=== PATIENT | male | born 1945 | race Caucasian/White ===

== ENCOUNTER 2017-04-03 08:11 | Outpatient (CLI) | payer MEDICARE, OTHER ==
[2016-05-20 23:53] VITALS: BP 142/65
== END 2017-04-03 08:30 ==
LOC: LAB 08:11
PROVIDERS: ATTEND Family Medicine
DX: G40.909 Epilepsy, unspecified, not intractable, without status epilepticus (principal)
CPT/HCPCS: 36415; 80188

== ENCOUNTER 2018-08-19 16:58 | Observation (INO) | payer MEDICARE, OTHER ==
--- NOTE | 2018-08-19 17:28 | History and Physical Report ---
History of Present Illnes - History of Present Illness Reason for Visit: Fever, dyspnea History of Present Illness: This is a 73 year old male who presented to the clinic this afternoon with complaint of fever and dyspnea over the past two days. His fever in the office was 102.7, and he had significant difficulty ambulating to the table for examination. He says that he feels very weak and dizzy, and has not had much appetite. He has a significant history of CAD, but denies any chest pain currently or in the past few days. His is feeling well. - Past Medical History Cardiac: CAD, Hyperlipidemia CONTINUOUS IMPROVEMENT CONSULTANT: Seizure - Past Surgical History Past Surgical History: Appendectomy, Other (AAA stent, removal of infected AAA graft, lumbar fusion), Other (PCI/Stent) - Past Social History Smoke: # pack years (60), Quit Alcohol: None Drugs: None Lives: With Family () Domestic Violence: Negative - Health Maintenance Health Maintenance: Cholesterol Influenza Vaccine: Current for this Influenza Season Pneumonia Vaccine: Yes Resuscitation Status: Resusciation Status Resuscitation Status Full Code - Unable to Obtain History Unable to Obtain: No Review of Systems - Review of Systems Constitutional: Fever, Chills, Sweats, Weakness, Malaise Eyes: negative: pain ENT: negative: Ear Pain, Ear Discharge Respiratory: Cough, Shortness of Breath Cardiovascular: negative: Chest Pain, Palpitations Gastrointestinal: Nausea. negative: Vomiting Genitourinary: negative: Dysuria, Frequency Musculoskeletal: negative: Neck Pain, Shoulder Pain Skin: negative: Rash Neurological: Weakness, Incoordination. negative: Change in Speech, Seizures - Medications/Allergies Allergies/Adverse Reactions: Allergies Allergy/AdvReac Type Severity Reaction Status Date / Time No Known Drug Allergies Allergy Verified 05/20/16 22:59 Current Inpatient Medications: Current Inpatient Medications Hydroxychloroquine Sulfate (Plaquenil) 200 mg PO BID ANGEL Sodium Chloride (Normal Saline) 1,000 mls @ 100 mls/hr IV Q10H ANGEL Phenobarbital (Luminal) 30 mg PO DAILY ANGEL Exam - Exam General: Alert, Oriented to Person, Discheveled (and acutely ill) HEENT: Atraumatic, PERRLA, EOMI Neck: No: Stridor Lungs: Wheezes, Rhonchi (with cough) Cardiovascular: Regular rate, Tachycardia Murmur: No: Systolic Murmur Abdomen: Normal bowel sounds, Soft, No tenderness Genitourinary: No: Other Male Genitourinary: No: Other Female Genitourinary: No: Other Integumentary: Flushed Extremities: No clubbing, No cyanosis Neurological: Normal speech, Generalized Weakness Psych/Mental Status: No: Mental status NL (some confusion) Assessment/Plan - Assessment/Plan (1) Cough Status: Acute Current Visit: Yes Assessment: Check CXR (2) Fever Status: Acute Current Visit: Yes Assessment: CBC ,CXR (3) Ataxia Status: Acute Current Visit: Yes (4) Mental status change resolved Status: Acute Current Visit: Yes Assessment: Likely due to medical illness (5) CAD (coronary artery disease) Status: Acute Current Visit: Yes Qualifiers: Coronary Disease-Associated Artery/Lesion type: [place] artery Lum[place] vs. transplanted heart: [place] heart Associated angina: without angina Qualified Code(s): I25.10 - Atherosclerotic heart disease of [place] coronary artery without angina pectoris Assessment: Check EKG and troponin VTE Assessment - RISK FACTOR SCORE VTE RISK FACTOR SCORES: AGE OVER 60 YEARS, ACUTE INFECTION OTHER THEN SEPSIS (on Lovenox 30 mg IM daily)
[2018-08-19] MEDS ORDERED: 0.9 % SODIUM CHLORIDE 1,000 ML IV SCH (17:30)
[2018-08-19] MEDS ORDERED: ACETAMINOPHEN 325 MG TABLET PO PRN (18:25)
[2018-08-19] MEDS ORDERED: 0.9 % SODIUM CHLORIDE 250 ML IV ONE (18:41)
[2018-08-19] MEDS ORDERED: cefTRIAXone SODIUM 1 GM VIAL ONE (18:42)
[2018-08-19] MEDS ORDERED: HYDROXYCHLOROQUINE SULFATE 200 MG TABLET PO ONE (18:42)
[2018-08-19] MEDS ORDERED: METOPROLOL TARTRATE 50 MG TABLET ONE (18:42)
[2018-08-19] MEDS ORDERED: IPRATROPIUM/ALBUTEROL SULFATE 3 ML AMPUL.NEB NEB ONE (18:43)
[2018-08-19] MEDS ORDERED: SIMVASTATIN 20 MG TABLET ONE (18:43)
[2018-08-19] MEDS ORDERED: 0.9 % SODIUM CHLORIDE 50 ML IV ONE (18:43)
[2018-08-19] MEDS ORDERED: AZITHROMYCIN 500 MG VIAL IV ONE (18:47)
[2018-08-19] MEDS ORDERED: AZITHROMYCIN 250 MG in 0.9 % SODIUM CHLORIDE 250 ML IV SCH (19:00)
[2018-08-19] MEDS ORDERED: cefTRIAXone SODIUM 1 GM in 0.9 % SODIUM CHLORIDE 50 ML IV SCH (19:00)
[2018-08-19 19:11] VITALS: BMI 28.8
[2018-08-19 20:09] LABS: BASOPHILS % 0.4 (0.0-1.5); EOSINOPHILS % 1.4 % (0.0-6.8); MEAN CORPUSCULAR HEMOGLOBIN 32.5 pg (28.0-34.0); MONOCYTES % 10.9 % (0.0-11.0); NEUTROPHILS # 8.1 # k/uL (1.4-7.7)
[2018-08-19 20:17] LABS: eGFR (Non-African) > 60
[2018-08-19] MEDS ORDERED: ASPIRIN 81 MG CHEW TAB PO ONE (20:58)
[2018-08-19] MEDS ORDERED: ASPIRIN EC 81 MG TABLET.DR ONE (20:59)
[2018-08-19] MEDS ORDERED: METOPROLOL TARTRATE 50 MG TABLET PO SCH (21:00)
[2018-08-19] MEDS ORDERED: IPRATROPIUM/ALBUTEROL SULFATE 3 ML AMPUL.NEB NEB SCH (21:00)
[2018-08-19] MEDS ORDERED: SIMVASTATIN 20 MG TABLET PO SCH (21:00)
[2018-08-19] MEDS ORDERED: HYDROXYCHLOROQUINE SULFATE 200 MG TABLET PO SCH (21:00)
[2018-08-19 21:25] VITALS: BP 130/71
--- NOTE | 2018-08-19 22:23 | Diagnostic Imaging Report ---
MONICA CHRISTENSEN [facility] [address] [facility] [address] [place], [place]. [address] Report Submission Date: Aug 19, 2018 6:06:23 PM GLOBAL CHIEF CREATIVE OFFICER Patient Study Name: SHAGGY IGNACIO Date: Aug 19, 2018 5:41:49 PM GLOBAL CHIEF CREATIVE OFFICER Modality Type: DX Gender: M Description: CHEST : 41 Institution: [facility] Physician: MONICA CHRISTENSEN Chest, PA and lateral HISTORY Fever, weakness. FINDINGS No prior examination is available for comparison. There is no pleural effusion or pneumothorax. There is a 13 cm mass or mass-like infiltrate in the left upper lobe. Malignancy is not excluded and computed tomography is recommended for further evaluation. Right lung is relatively clear. Heart size and pulmonary vascularity are normal. IMPRESSION Large left upper lobe mass or mass-like infiltrate. Further evaluation is recommended. Electronically signed on Aug 19, 2018 6:06:23 PM GLOBAL CHIEF CREATIVE OFFICER by: Amrik DESHPANDE
[2018-08-20] MEDS ORDERED: LISINOPRIL 20 MG TABLET PO SCH (09:00)
[2018-08-20] MEDS ORDERED: PHENobarbital 30 MG TABLET PO SCH (09:00)
[2018-08-20] MEDS ORDERED: amLODIPine BESYLATE 5 MG TABLET PO SCH (09:00)
== END 2018-08-19 21:50 | disposition short-term general hospital (02) ==
LOC: SOUTH 16:58
PROVIDERS: ADMIT Family Medicine; ATTEND Family Medicine
DX: R05 Cough (principal); R50.9 Fever, unspecified; R27.0 Ataxia, unspecified; R41.82 Altered mental status, unspecified; I25.10 Atherosclerotic heart disease of native coronary artery without angina pectoris
CPT/HCPCS: 71046; 80053; 84484; 85025; 87040; 93005; 96365; G0378; G0379; J0456; J0696; J7030; J7050; 99235; S1016

== ENCOUNTER 2018-09-21 00:18 | Emergency (ER) | payer MEDICARE, OTHER ==
--- NOTE | 2018-09-21 00:28 | ED Physician Documentation ---
Chest Pain - HISTORIAN Historian: patient - HPI Stated Complaint: chest pressure no improvement since illness last month Chief Complaint: Chest Pain Onset: other (4 weeks ) Timing: still present Duration: constant Last known Well Date: 08/21/18 Last Known Well Time: 10:00 Last known Well Code/Unknown Code: Unknown Context: other (all the time ) Severity: mild Quality: pressure. denies: like prior MD Chest Pain Radiation: no radiation Chest Pain Signs/Symptoms: denies: nausea, vomiting, diaphoresis, cool extremities, dizziness, dyspnea, tachypnea, hypotension, palpitations, weakness Worsened By: nothing Relieved By: other (walking ) - ROS CONST: none MS/LYMPH: none NEURO/PSYCH: denies: headache, fainting - PAST HX MD risk factors: A-Fib Neuro deficit: none GI disease: none Lung disease: other (pneumonia last month ) Surgeries/Procedures: cardiac stent Immunizations: UTD Allergies/Adverse Reactions: Allergies Allergy/AdvReac Type Severity Reaction Status Date / Time No Known Drug Allergies Allergy Verified 09/21/18 00:36 Home Medications: Ambulatory Orders Medication Instructions Recorded Simvastatin 20 mg PO DAILY u2 05/11/13 Cilostazol 50 mg PO BID 05/20/16 Metoprolol Tartrate 50 mg PO BID 09/21/18 Ramipril [Altace] 10 mg PO DAILY 09/21/18 Rivaroxaban [Xarelto] 20 mg PO DAILY 09/21/18 - SOCIAL HX Smoking History: non-smoker Alcohol Use: none Drug Use: none - FAMILY HX Family HX: none - VITAL SIGNS Vital Signs: Vital Signs Temp Pulse Resp BP Pulse Ox 130/71 08/19/18 21:50 - REVIEWED ASSESSMENTS Nursing Assessment Reviewed: Yes Vitals Reviewed: Yes Progress - Progress Progress: 0150: resting quietly in bed DG 0314: results discussed. He does not wish to be admitted. He states he will call Dr Shankar in the am. ED Results Lab/Radiology - Radiology Radiology Impressions: PA and lateral chest Clinical history: Chest pain. Recent pneumonia. Findings: Examination of the chest in PA and lateral views with comparison to examination of 08/19/2018 demonstrates decrease in left-sided infiltrate with residual. There are bilateral pleural effusions blunting the costophrenic angles. Cardiovascular and mediastinal silhouettes are stable. Monitor leads superimpose the chest. Impression: 1. Decrease in left-sided infiltrate. 2. New right effusion. 3. Recommend follow-up to resolution. Electronically signed on Sep 21, 2018 1:20:49 AM CLEAN UP PERSON by: Mike Goodman CT pulmonary angiography with contrast Clinical history: Chest pain. Elevated D-dimer. Contrast administered: 95 mL of Omnipaque. Technique: CT pulmonary angiography is performed with intravenous infusion of contrast. Sliding sagittal and coronal MIP reconstructions were performed by the technologist. Findings: There are underlying changes of emphysema in the lungs. There are bilateral pleural effusions greater on the right with passive atelectasis in the lung bases. There is irregular infiltrate in the left upper lobe. Follow-up to resolution is recommended. The central airways are patent. Vascular calcification is present in the thoracic aorta with extension into the origins of the great vessels and coronary arteries including calcification in the left main coronary artery. There are small mediastinal nodes but no significant adenopathy. Vascular structures enhance normally. There is no filling defect in the pulmonary arteries or vascular cutoff to suggest a diagnosis of pulmonary embolism. Impression: 1. No pulmonary embolus. 2. Bilateral pleural effusions greater on the right. 3. Irregular left upper lobe infiltrate. Recommend follow-up to resolution. 4. Vascular calcification. Electronically signed on Sep 21, 2018 3:08:08 AM CLEAN UP PERSON by: Mike Goodman Chest Pain Physical Exam - EXAM General Appearance: no acute distress, alert EENT: eye inspection normal, no signs of dehydration Neck: nml inspection Respiratory: no resp. distress, chest non-tender, nml breath sounds CVS: reg. rate & rhythm, no murmur Abdomen: soft, no distension Skin: warm/dry, normal color Extremities: non-tender, normal range of motion, no evidence of injury, no edema Neuro: oriented X3 Discharge Clincal Impression: Pleural effusion Pneumonia Qualifiers: Pneumonia type: due to unspecified organism Laterality: left Lung location: lower lobe of lung Qualified Code(s): J18.1 - Lobar pneumonia, unspecified organism Referrals: Matthew Shankar MD [Primary Care Provider] - 2 Days Comments: 1. Doxycycline 100 mg take 1 by mouth twice daily x [address] Shankar in AM 3. Return to ER for any concerns Condition: Stable Disposition: 07 AGAINST MEDICAL ADVICE Decision to Admit: NO Date of Decison to Admit: 09/21/18 Decision Time: 03:21
[2018-09-21] MEDS ORDERED: ASPIRIN 81 MG CHEW TAB PO ONE (00:31)
[2018-09-21] MEDS ORDERED: DOXYCYCLINE 100 MG CAPSULE PO ONE (03:16)
[2018-09-21 03:39] VITALS: BP 151/87
--- NOTE | 2018-09-21 06:37 | Diagnostic Imaging Report ---
MARIO GROVES [facility] [address] [facility] [address] [address] Report Submission Date: Sep 21, 2018 3:08:08 AM LICENSING REPRESENTATIVE Patient Study Name: SHAGGY IGNACIO Date: Sep 21, 2018 2:28:29 AM LICENSING REPRESENTATIVE Modality Type: CT\SR Gender: M Description: CT CHEST W/ CONTRAST : 43 Institution: [facility] Physician: MARIO GROVES CT pulmonary angiography with contrast Clinical history: Chest pain. Elevated D-dimer. Contrast administered: 95 mL of Omnipaque. Technique: CT pulmonary angiography is performed with intravenous infusion of contrast. Sliding sagittal and coronal MIP reconstructions were performed by the technologist. Findings: There are underlying changes of emphysema in the lungs. There are bilateral pleural effusions greater on the right with passive atelectasis in the lung bases. There is irregular infiltrate in the left upper lobe. Follow-up to resolution is recommended. The central airways are patent. Vascular calcification is present in the thoracic aorta with extension into the origins of the great vessels and coronary arteries including calcification in the left main coronary artery. There are small mediastinal nodes but no significant adenopathy. Vascular structures enhance normally. There is no filling defect in the pulmonary arteries or vascular cutoff to suggest a diagnosis of pulmonary embolism. Impression: 1. No pulmonary embolus. 2. Bilateral pleural effusions greater on the right. 3. Irregular left upper lobe infiltrate. Recommend follow-up to resolution. 4. Vascular calcification. Electronically signed on Sep 21, 2018 3:08:08 AM LICENSING REPRESENTATIVE by: Mike DESHPANDE
--- NOTE | 2018-09-21 06:40 | Diagnostic Imaging Report ---
MARIO GROVES [facility] [address] [facility] [address] [place], [place]. [address] Report Submission Date: Sep 21, 2018 1:20:49 AM PATTERN PAINTER Patient Study Name: SHAGGY IGNACIO Date: Sep 21, 2018 12:51:42 AM PATTERN PAINTER Modality Type: DX Gender: M Description: CHEST : 41 Institution: [facility] Physician: MARIO GROVES PA and lateral chest Clinical history: Chest pain. Recent pneumonia. Findings: Examination of the chest in PA and lateral views with comparison to examination of 08/19/2018 demonstrates decrease in left-sided infiltrate with residual. There are bilateral pleural effusions blunting the costophrenic angles. Cardiovascular and mediastinal silhouettes are stable. Monitor leads superimpose the chest. Impression: 1. Decrease in left-sided infiltrate. 2. New right effusion. 3. Recommend follow-up to resolution. Electronically signed on Sep 21, 2018 1:20:49 AM PATTERN PAINTER by: Mike DESHPANDE
[2018-09-21 08:01] LABS: BASOPHILS % 0.4 (0.0-1.5); EOSINOPHILS % 2.2 % (0.0-6.8); MEAN CORPUSCULAR HEMOGLOBIN 32.8 pg (28.0-34.0); MONOCYTES % 9.1 % (0.0-11.0)
[2018-09-21 08:02] LABS: eGFR (Non-African) > 60
== END 2018-09-21 03:35 | disposition left against medical advice (07) ==
LOC: ED 00:18
DX: J90 Pleural effusion, not elsewhere classified (principal); J18.1 Lobar pneumonia, unspecified organism
CPT/HCPCS: 36415; 71046; 71260; 80053; 84484; 85025; 85379; 99284; 99285; Q9967; S1016

== ENCOUNTER 2018-09-21 20:06 | Emergency (ER) | payer MEDICARE, OTHER ==
[2018-09-21] MEDS ORDERED: IPRATROPIUM/ALBUTEROL SULFATE 3 ML AMPUL.NEB NEB STA (20:31)
--- NOTE | 2018-09-21 21:39 | ED Physician Documentation ---
Dyspnea - HISTORIAN Historian: patient - HPI Stated Complaint: Shortness of air Chief Complaint: Dyspnea Onset: days ago Duration: continues in ED Further Comments: yes (73 year old male patient presents with complaints of dyspnea. Patient was seen in the ER last night and diagnosed with pneumonia. Patient was discharged with doxycycline. Patient was offered observation admiss ion, refused to stay.) - ROS CONST: recent illness (Pneumonia) EYES/ENT: none GI/: none NEURO/PSYCH: denies: headache MS/SKIN/LYMPH: none - PAST HX Lung Disease: asthma, COPD, pneumonia (last month) Cardiac Disease: A-Fib PE Risk Factors: hypertension Allergies/Adverse Reactions: Allergies Allergy/AdvReac Type Severity Reaction Status Date / Time No Known Drug Allergies Allergy Verified 09/21/18 21:18 Home Medications: Ambulatory Orders Medication Instructions Recorded Simvastatin 20 mg PO DAILY u2 05/11/13 Cilostazol 50 mg PO BID 05/20/16 Metoprolol Tartrate 50 mg PO BID 09/21/18 Ramipril [Altace] 10 mg PO DAILY 09/21/18 Rivaroxaban [Xarelto] 20 mg PO DAILY 09/21/18 - SOCIAL HX Smoking History: non-smoker - FAMILY HX Family History: denies: none - VITAL SIGNS Vital Signs: Vital Signs Temp Pulse Resp BP Pulse Ox 98.6 F 76 18 135/83 94 09/21/18 20:15 09/21/18 20:15 09/21/18 20:15 09/21/18 20:15 09/21/18 20:15 - REVIEWED ASSESSMENTS Nursing Assessment Reviewed: Yes Vitals Reviewed: Yes Progress - Progress Progress: Records reviewed from ER visit yesterday including lab and CT chest. Duoneb given in ER. Sat improved to 98% Patient states he has an appointment with the pulmonogist in the morning. ED Results Lab/Radiology - Radiology Radiology Impressions: CT pulmonary angiography with contrast Clinical history: Chest pain. Elevated D-dimer. Contrast administered: 95 mL of Omnipaque. Technique: CT pulmonary angiography is performed with intravenous infusion of contrast. Sliding sagittal and coronal MIP reconstructions were performed by the technologist. Findings: There are underlying changes of emphysema in the lungs. There are bilateral pleural effusions greater on the right with passive atelectasis in the lung bases. There is irregular infiltrate in the left upper lobe. Follow-up to resolution is recommended. The central airways are patent. Vascular calcification is present in the thoracic aorta with extension into the origins of the great vessels and coronary arteries including calcification in the left main coronary artery. There are small mediastinal nodes but no significant adenopathy. Vascular structures enhance normally. There is no filling defect in the pulmonary arteries or vascular cutoff to suggest a diagnosis of pulmonary embolism. Impression: 1. No pulmonary embolus. 2. Bilateral pleural effusions greater on the right. 3. Irregular left upper lobe infiltrate. Recommend follow-up to resolution. 4. Vascular calcification. Electronically signed on Sep 21, 2018 3:08:08 AM TABLE SAW OPERATOR by: Mike Goodman - Orders Orders: ED Orders Category Date Time Status Ipratropium/Albuterol Sulfate [Duoneb] Med 09/21/18 20:31 Discontinued 3 ml NEB STAT STA Dyspnea Physical Exam - EXAM General Appearance: no acute distress, alert EENT: eye inspection normal, ENT inspection normal, pharynx normal, no signs of dehydration, MARCIA, no nystagmus, TM's nml Respiratory: no resp. distress, no pain on inspiration, speaks full sentences, decreased air movement (bilateral bases; ), rales (right upper lobe bilateral), other (RA Sat 94 % on arrival. ) Skin: color nml, no rash, warm, nml palp., dry Extremities: non-tender, normal range of motion, no evidence of injury, no edema, J, RESIDENT INTERN Neuro/Psych: oriented x3, CN's nml as tested, motor nml, sensation nml, mood/affect nml Discharge Clincal Impression: Pleural effusion Pneumonia Qualifiers: Pneumonia type: due to unspecified organism Laterality: left Lung location: upper lobe of lung Qualified Code(s): J18.1 - Lobar pneumonia, unspecified organism Referrals: Matthew Shankar MD [Primary Care Provider] - 2 Days Additional Instructions: Keep your appointment with the lodging manager in the morning. Continue your antibiotics. Return to the ER if you have increased SOB. Condition: Stable Disposition: 01 HOME, SELF-CARE Decision to Admit: NO Decision Time: 21:38
[2018-09-21 22:00] VITALS: BP 136/78
== END 2018-09-21 21:55 | disposition home or self-care (01) ==
LOC: ED 20:06
DX: J90 Pleural effusion, not elsewhere classified (principal); J18.1 Lobar pneumonia, unspecified organism
CPT/HCPCS: 94640; 99283; 99284

== ENCOUNTER 2018-09-23 21:59 | Emergency (ER) | payer MEDICARE, OTHER ==
[2018-09-23] MEDS ORDERED: IPRATROPIUM/ALBUTEROL SULFATE 3 ML AMPUL.NEB NEB ONE (23:32)
--- NOTE | 2018-09-24 01:01 | ED Physician Documentation ---
General Adult - HISTORIAN Historian: patient, spouse - HPI Stated Complaint: shortness of breath Chief Complaint: Dyspnea Additional Information: intro self as ELEMENTARY READING SPECIALIST. pt presents to the ED via POV with c/o dyspnea. VSS. O2 94% HR 86. a/o x 3, skin pwd. 2L O2 placed and DuoNeb admin. Dyspnea resolved. Pt previously dx with pneumonia and on doxycycline. recent dx of COPD pt here previously x 2 and refused admission/transfer. pt was seen by pulmonology today and placed on proair inh. pt states he is scheduled to have thoracentesis with pulmonology this week although pt is on xarleto and this has to be d/c prior to procedure. and pt has appt with cardiology, dr clarke this friday to address xarleto. - ROS CONST: recent illness, weakness EYES/ENT: none CVS/RESP: none, shortness of breath, cough. denies: chest pain GI/: none. denies: abdominal pain, problems urinating, vomiting, nausea, diarrhea MS/SKIN/LYMPH: none. denies: leg swelling NEURO/PSYCH: denies: headache, fainting, dizziness, tingling, numbness, difficulty walking, difficulty with speech, anxiety, depression - PAST HX Past History: A-Fib Allergies/Adverse Reactions: Allergies Allergy/AdvReac Type Severity Reaction Status Date / Time No Known Drug Allergies Allergy Verified 09/21/18 21:18 Home Medications: Ambulatory Orders Medication Instructions Recorded Simvastatin 20 mg PO DAILY u2 05/11/13 Cilostazol 50 mg PO BID 05/20/16 Metoprolol Tartrate 50 mg PO BID 09/21/18 Ramipril [Altace] 10 mg PO DAILY 09/21/18 Rivaroxaban [Xarelto] 20 mg PO DAILY 09/21/18 Ipratropium/Albuterol Sulfate 3 ml NEB Q6 PRN #30 ampul.neb 09/25/18 [Duoneb] - SOCIAL HX Smoking History: non-smoker Alcohol Use: none Drug Use: none - FAMILY HX Family History: No - VITAL SIGNS Vital Signs: Vital Signs Temp Pulse Resp BP Pulse Ox 97.6 F 74 18 131/66 98 09/23/18 22:00 09/24/18 00:30 09/23/18 22:00 09/23/18 22:00 09/24/18 00:30 - REVIEWED ASSESSMENTS Nursing Assessment Reviewed: Yes Vitals Reviewed: Yes Progress - Progress Progress: Dyspnea subsided after duoneb x 1 Advised pt his CXR was worsening and should be admitted/transferred. Pt refused. explained risks including . advised to return if worse. understanding verbalized ED Results Lab/Radiology - Radiology Radiology Impressions: Patient Study Name: SHAGGY IGNACIO Date: Sep 23, 2018 11:47:18 PM ADMINISTRATIVE SUPPORT ASSOC Modality Type: DX Gender: M Description: CHEST : 41 Institution: [facility] Physician: MELISSA BIRMINGHAM Ap portable upright radiographs of the chest Clinical history: Pneumonia Comparison: 2 days earlier Technique: anterior /posterior portable upright Findings: There is cardiomegaly. The aorta is tortuous and calcified. Increased infiltrates are present in both lungs with increasing right pleural effusion and right base atelectasis. The lung ludwig remain hyperinflated . Impression: Increasing bilateral infiltrates and increasing right pleural effusion Electronically signed on Sep 24, 2018 12:26:35 AM ADMINISTRATIVE SUPPORT ASSOC by: Dmitri Griffin PA and lateral chest Clinical history: Chest pain. Recent pneumonia. Findings: Examination of the chest in PA and lateral views with comparison to examination of 08/19/2018 demonstrates decrease in left-sided infiltrate with residual. There are bilateral pleural effusions blunting the costophrenic angles. Cardiovascular and mediastinal silhouettes are stable. Monitor leads superimpose the chest. Impression: 1. Decrease in left-sided infiltrate. 2. New right effusion. 3. Recommend follow-up to resolution. Electronically signed on Sep 21, 2018 1:20:49 AM ADMINISTRATIVE SUPPORT ASSOC by: Mike Goodman CT pulmonary angiography with contrast Clinical history: Chest pain. Elevated D-dimer. Contrast administered: 95 mL of Omnipaque. Technique: CT pulmonary angiography is performed with intravenous infusion of contrast. Sliding sagittal and coronal MIP reconstructions were performed by the technologist. Findings: There are underlying changes of emphysema in the lungs. There are bilateral pleural effusions greater on the right with passive atelectasis in the lung bases. There is irregular infiltrate in the left upper lobe. Follow-up to resolution is recommended. The central airways are patent. Vascular calcification is present in the thoracic aorta with extension into the origins of the great vessels and coronary arteries including calcification in the left main coronary artery. There are small mediastinal nodes but no significant adeno yari. Vascular structures enhance normally. There is no filling defect in the pulmonary arteries or vascular cutoff to suggest a diagnosis of pulmonary embolism. Impression: 1. No pulmonary embolus. 2. Bilateral pleural effusions greater on the right. 3. Irregular left upper lobe infiltrate. Recommend follow-up to resolution. 4. Vascular calcification. Electronically signed on Sep 21, 2018 3:08:08 AM ADMINISTRATIVE SUPPORT ASSOC by: Mike Goodman - Orders Orders: ED Orders Category Date Time Status Continuous EKG monitoring Q30M Care 09/23/18 23:28 Active Continuous Pulse Oximetry Q30M Care 09/23/18 23:[address] IV Lock 1T Care 09/23/18 23:28 Active CHEST 1VIEW [RAD] Stat Exams 09/23/18 Ordered CBC/PLATELET/DIFF Stat Lab 09/23/18 23:44 Received CMP Stat Lab 09/23/18 23:44 Received D DIMER Stat Lab 09/23/18 23:44 Received TROPONIN T (Zeus) Stat Lab 09/23/18 23:44 Received Ipratropium/Albuterol Sulfate [Duoneb] Med 09/23/18 23:32 Discontinued 3 ml NEB NOW ONE Oxygen Daily Oxygen 09/23/18 23:30 Ordered EKG WITH COMPARISON Stat Ther 09/23/18 23:28 Ordered General Adult Physical Exam - PHYSICAL EXAM GENERAL APPEARANCE: mild distress EENT: eye inspection normal, ENT inspection normal, pharynx normal, no signs of dehydration, MARCIA, no nystagmus, TM's nml NECK: normal inspection, thyroid normal RESPIRATORY: no resp distress, chest non-tender, rales (right-mild), other (diminished Bilateral ). No: wheezes CVS: reg rate & rhythm, heart sounds normal, equal pulses, no murmur, no gallop, PMI nml, no JVD ABDOMEN: soft, no organomegaly, normal bowel sounds, no abdominal bruit, no distension BACK: normal inspection, no CVA tenderness SKIN: normal color, warm/dry, NR, INT, PAL, DR EXTREMITIES: non-tender, normal range of motion, no evidence of injury, no edema, J, ELEMENTARY READING SPECIALIST NEURO: oriented X3, motor nml, sensation nml, mood/affect nml Discharge Clincal Impression: Pleural effusion Pneumonia Qualifiers: Pneumonia type: due to unspecified organism Laterality: unspecified laterality Lung location: unspecified part of lung Qualified Code(s): J18.9 - Pneumonia, unspecified organism Prescriptions: Ipratropium/Albuterol Sulfate [Duoneb] 3 ml NEB Q6 PRN #30 ampul.neb PRN Reason: Bronchospasm Referrals: Matthew Shankar MD [Primary Care Provider] - 2 Days Condition: Stable Disposition: AGAINST MEDICAL ADVICE Decision to Admit: NO Date of Decison to Admit: 09/24/18 Decision Time: 01:00
[2018-09-24 01:05] VITALS: BP 119/78
--- NOTE | 2018-09-24 06:12 | Diagnostic Imaging Report ---
MELISSA BIRMINGHAM [facility] [address] [facility] [address] [address] Report Submission Date: Sep 24, 2018 12:26:35 AM LEARNING AND DEVELOPMENT DIRECTOR Patient Study Name: SHAGGY IGNACIO Date: Sep 23, 2018 11:47:18 PM LEARNING AND DEVELOPMENT DIRECTOR Modality Type: DX Gender: M Description: CHEST : 41 Institution: [facility] Physician: MELISSA BIRMINGHAM Ap portable upright radiographs of the chest Clinical history: Pneumonia Comparison: 2 days earlier Technique: anterior /posterior portable upright Findings: There is cardiomegaly. The aorta is tortuous and calcified. Increased infiltrates are present in both lungs with increasing right pleural effusion and right base atelectasis. The lung ludwig remain hyperinflated . Impression: Increasing bilateral infiltrates and increasing right pleural effusion Electronically signed on Sep 24, 2018 12:26:35 AM LEARNING AND DEVELOPMENT DIRECTOR by: Dmitri DESHPANDE
[2018-09-24 07:11] LABS: BASOPHILS % 0.3 (0.0-1.5); EOSINOPHILS % 2.4 % (0.0-6.8); MEAN CORPUSCULAR HEMOGLOBIN 32.9 pg (28.0-34.0); MONOCYTES % 6.9 % (0.0-11.0); NEUTROPHILS # 4.6 # k/uL (1.4-7.7); eGFR (Non-African) > 60
== END 2018-09-24 01:05 | disposition left against medical advice (07) ==
LOC: ED 21:59
DX: J90 Pleural effusion, not elsewhere classified (principal); J18.9 Pneumonia, unspecified organism
CPT/HCPCS: 36415; 71045; 80053; 84484; 85025; 85379; 94640; 99283; 99285; S1016

== ENCOUNTER 2018-09-27 00:31 | Emergency (ER) | payer MEDICARE, OTHER ==
[2018-09-27] MEDS ORDERED: FUROSEMIDE 40 MG/4 ML VIAL IVP ONE (00:46)
[2018-09-27] MEDS ORDERED: clonazePAM 0.5 MG TABLET PO ONE (01:05)
--- NOTE | 2018-09-27 01:34 | ED Physician Documentation ---
Dyspnea - HISTORIAN Historian: patient, spouse - HPI Stated Complaint: "When I lay down I feel like my chest gets tight than I become SOA" Chief Complaint: Dyspnea Additional Information: Patient with past medical history of dilated cardiomyopathy (lvef 38%), atrial fibrillation and emphysema presents to ED with ongoing orthopnea. Patient was hospitalized in [place] recently for pneumonia, he is still on antibiotics. He has had multiple ER visits for shortness of breath. Chest xray from 09/23/18 compared to 09/21/18 reveals worsening right pleural effusion and heart failure. Patient saw cardiology yesterday and was started on Aldactone and Lasix. Pulmomology would like to do a thoracentesis however cardiology is against the plan due to Xarelto. Patient has taken one dose of Aldactone and Lasix. He denies fever, chills, cough, chest pain or night sweats. Onset: days ago (30) Duration: continues in ED Initiating Event: upper respiratory illness Severity: moderate Exacerbated By: laying flat Associated Symptoms: denies: chills, fever, chest pain, bloody cough, productive cough - ROS CONST: recent illness EYES/ENT: none GI/: none NEURO/PSYCH: denies: headache MS/SKIN/LYMPH: none - PAST HX Lung Disease: COPD Cardiac Disease: A-Fib, other (dilated cardiomyopathy) PE Risk Factors: leg swelling Surgeries/Procedures: none Other History: none Allergies/Adverse Reactions: Allergies Allergy/AdvReac Type Severity Reaction Status Date / Time No Known Drug Allergies Allergy Verified 09/21/18 21:18 Home Medications: Ambulatory Orders Medication Instructions Recorded Simvastatin 20 mg PO DAILY u2 05/11/13 Cilostazol 50 mg PO BID 05/20/16 Metoprolol Tartrate 50 mg PO BID 09/21/18 Ramipril [Altace] 10 mg PO DAILY 09/21/18 Rivaroxaban [Xarelto] 20 mg PO DAILY 09/21/18 Ipratropium/Albuterol Sulfate 3 ml NEB Q6 PRN #30 ampul.neb 09/25/18 [Duoneb] Furosemide 20 mg PO DAILY 09/27/18 Spironolactone 25 tab PO DAILY 09/27/18 - SOCIAL HX Smoking History: non-smoker Alcohol Use: none Drug Use: none - FAMILY HX Family History: none - VITAL SIGNS Vital Signs: Vital Signs Temp Pulse Resp BP Pulse Ox 97.8 F 67 12 138/78 99 09/27/18 00:40 09/27/18 00:40 09/27/18 00:40 09/27/18 00:40 09/27/18 00:40 - REVIEWED ASSESSMENTS Nursing Assessment Reviewed: Yes Vitals Reviewed: Yes Progress - Progress Progress: 0120 Discussed cardiomyopathy, heart failure and pleural effusion. Recommend continuing Aldactone and Lasix. Will give IV lasix here and Klonopin x 1. ED Results Lab/Radiology - Orders Orders: ED Orders Category Date Time Status Place IV Lock 1T Care 09/27/18 00:46 Active BNP [NT-proBNP] Stat Lab 09/27/18 Ordered Furosemide [Lasix] Med 09/27/18 00:46 Discontinued 40 mg IVP NOW ONE clonazePAM [Klonopin] Med 09/27/18 01:05 Discontinued 0.5 mg PO NOW ONE Dyspnea Physical Exam - EXAM General Appearance: no acute distress, alert EENT: MARCIA Respiratory: no resp. distress, other (bibasilar crackles R > L) CVS: no murmur, irregularly irreg. rhythm Abdomen: non-tender, no distention Skin: color nml, no rash Extremities: non-tender, edema (+1 lower extremity edema bilaterally to mid tib/fib) Neuro/Psych: oriented x3 Discharge Clincal Impression: Dilated cardiomyopathy, Pleural effusion, right Referrals: Matthew Shankar MD [Primary Care Provider] - 2 Days Additional Instructions: 1. Finish antibiotic as previously prescribed 2. Take Lasix and Spironolactone together everyday (these are water pills) 3. Weight yourself daily at the same time everyday. If you gain more than 2 pounds in 24 hours or 3 pounds in 5 days call your account installation specialist 4. Ask your Branch Services Manager about joining heart failure clinic. They can help you tremendously 5. Follow up with Cardiology and Pulmonology as already scheduled. 6. Maintain a low sodium 2g diet. Where there is salt there is water. Water is not your friend. Decision to Admit: NO Date of Decison to Admit: 09/27/18 Decision Time: 01:52
[2018-09-27 03:51] VITALS: BP 139/84
== END 2018-09-27 02:20 | disposition home or self-care (01) ==
LOC: ED 00:31
DX: I42.0 Dilated cardiomyopathy (principal); J90 Pleural effusion, not elsewhere classified
CPT/HCPCS: 83880; 96374; 99283; 99284; J1940; S1016

== ENCOUNTER 2018-10-12 12:56 | Emergency (ER) | payer MEDICARE, OTHER ==
--- NOTE | 2018-10-12 12:59 | ED Physician Documentation ---
General Adult - HISTORIAN Historian: patient - HPI Stated Complaint: chest pain Chief Complaint: Chest Pain Onset: hours (5) Timing: better Further Comments: yes (chest pain that started this am when he awoke. He states he took ibuprofen and he states the pain "is all but gone now" would rate 3/10. No nausea or sweating. No radiation of pain. States the pain felt like someone kicked him. He denies any injury. No shortness of breath. No injury) Last known Well Code/Unknown Code: Unknown - ROS CONST: no problems CVS/RESP: denies: shortness of breath GI/: denies: vomiting, nausea, diarrhea MS/SKIN/LYMPH: denies: rash NEURO/PSYCH: denies: headache - PAST HX Past History: A-Fib, hypertension Allergies/Adverse Reactions: Allergies Allergy/AdvReac Type Severity Reaction Status Date / Time No Known Drug Allergies Allergy Verified 10/12/18 13:57 Home Medications: Ambulatory Orders Medication Instructions Recorded Simvastatin 20 mg PO DAILY u2 05/11/13 Cilostazol 50 mg PO BID 05/20/16 Metoprolol Tartrate 50 mg PO BID 09/21/18 Ramipril [Altace] 10 mg PO DAILY 09/21/18 Rivaroxaban [Xarelto] 20 mg PO DAILY 09/21/18 Ipratropium/Albuterol Sulfate 3 ml NEB Q6 PRN #30 ampul.neb 09/25/18 [Duoneb] Furosemide 20 mg PO DAILY 09/27/18 Spironolactone 25 tab PO DAILY 09/27/18 - SOCIAL HX Smoking History: quit greater than 1 year Alcohol Use: none Drug Use: none - FAMILY HX Family History: No - VITAL SIGNS Vital Signs: Vital Signs Temp Pulse Resp BP Pulse Ox 139/84 09/27/18 02:15 - REVIEWED ASSESSMENTS Nursing Assessment Reviewed: Yes Vitals Reviewed: Yes Progress - Progress Progress: 1400: states pain has resolved and is asking to go home. Will await results DG 1418: results discussed - d dimer elevated same as 09.21.[address] No shortness of air or pain at this time. General Adult Physical Exam - PHYSICAL EXAM GENERAL APPEARANCE: no distress EENT: eye inspection normal, ENT inspection normal, no signs of dehydration NECK: normal inspection RESPIRATORY: no resp distress, chest non-tender, breath sounds normal CVS: reg rate & rhythm, heart sounds normal, equal pulses, no murmur ABDOMEN: soft, no distension SKIN: warm/dry, normal color EXTREMITIES: non-tender, normal range of motion, no evidence of injury, no edema NEURO: oriented X3 Discharge Clincal Impression: Chest pain Qualifiers: Chest pain type: unspecified Qualified Code(s): R07.9 - Chest pain, unspecified Referrals: Matthew Shankar MD [Primary Care Provider] - 2 Days Comments: 1. continue meds 2. Follow up with Dr Shankar - call Friday 3. Return to ER for any concerns Condition: Stable Disposition: 01 HOME, SELF-CARE Decision to Admit: NO (t) Date of Decison to Admit: 10/12/18 Decision Time: 14:22
[2018-10-12] MEDS ORDERED: ASPIRIN 81 MG CHEW TAB PO ONE (13:09)
[2018-10-12 13:23] LABS: BASOPHILS % 0.3 (0.0-1.5); EOSINOPHILS % 2.5 % (0.0-6.8); MONOCYTES % 6.1 % (0.0-11.0); NEUTROPHILS # 3.5 # k/uL (1.4-7.7)
[2018-10-12 13:46] LABS: eGFR (Non-African) > 60
[2018-10-12 14:41] VITALS: BP 125/69
--- NOTE | 2018-10-12 14:45 | Diagnostic Imaging Report ---
MARIO GROVES [facility] [address] [facility] [address] [place], [place]. [address] Report Submission Date: Oct 12, 2018 2:13:12 PM BUSINESS PROPOSAL REP Patient Study Name: SHAGGY IGNACIO Date: Oct 12, 2018 1:37:51 PM BUSINESS PROPOSAL REP Modality Type: DX Gender: M Description: CHEST : 41 Institution: [facility] Physician: MARIO GROVES Examination: Portable chest History: Evaluate lungs CHEST PAIN (Hx) Comparison exam: 23 September 2018 Findings: Single view of the chest demonstrates a prominent cardiac and mediastinal silhouette. Lung ludwig demonstrates basilar interstitial fullness though improved from prior study. No blunting of the costophrenic margins. Osseous structures are appropriate for age. Impression: Improved basilar infiltrates. No gross effusion. Cardiomegaly. Electronically signed on Oct 12, 2018 2:13:12 PM BUSINESS PROPOSAL REP by: Marky DESHPANDE
== END 2018-10-12 14:39 | disposition home or self-care (01) ==
LOC: ED 12:56
DX: R07.9 Chest pain, unspecified (principal)
CPT/HCPCS: 36415; 71045; 71275; 80053; 84484; 85025; 85379; 99283; 99285; S1016